=== PATIENT | male | born 1955 | race Caucasian/White ===

== ENCOUNTER 2018-09-11 15:53 | Emergency (ER) | payer MEDICAID ==
[~2018-09-11] VITALS: Ht 175.3 cm; Wt 93.0 kg
[2018-09-11 18:14] VITALS: BP 138/71
--- NOTE | 2018-09-11 18:32 | NUR ---
YAZ GONZALEZ DISCUSSED PLAN OF CARE, PATIENT ON OXYCODONE
--- NOTE | 2018-09-11 18:33 | NUR ---
ALIREZA CYRRENTLY TAKING 10 MG OXYCODONE Q 4-6 HOURS
--- NOTE | 2018-09-11 18:34 | NUR ---
PRIMARY ASSESSMENT COMPLETED WITH MARLENA CHAND - CHARTED UNDER HER NAME, BUT REVIEWED BY MYSELF AND I AGREE WITH CHARTING.
[2018-09-11] MEDS ORDERED: oxyCODONE/APAP 10/325mg tablet PO ONE (18:35)
[2018-09-11 18:56] LABS: BASOPHILS # (AUTO) 0.1 X10'3 (0-0.2); EOSINOPHILS # (AUTO) 0.1 X10'3 (0-0.9); EOSINOPHILS % (AUTO) 1.4 % (0-6); HEMATOCRIT 38.8 % (42.0-52.0); HEMOGLOBIN 13.1 g/dl (14.0-17.9); LYMPHOCYTES % (AUTO) 25.5 % (21-51); MEAN CORPUSCULAR HEMOGLOBIN 28.6 PG (27.0-31.0); MEAN CORPUSCULAR HGB CONC 33.8 g/dL (33.0-36.5); MEAN CORPUSCULAR VOLUME 84.5 FL (78-98); MEAN PLATELET VOLUME 8.3 FL (7.4-10.4); MONOCYTES # (AUTO) 0.9 X10'3 (0-0.9); MONOCYTES % (AUTO) 11.8 % (2-12); NEUTROPHILS # (AUTO) 4.7 X10'3 (1.8-7.7); NEUTROPHILS % (AUTO) 60.3 % (42-75); PLATELET COUNT 335 X10'3 (140-440); RED BLOOD COUNT 4.59 X10'6 (4.70-6.10); RED CELL DISTRIBUTION WIDTH 13.3 % (11.5-14.5); WHITE BLOOD COUNT 7.9 X10'3 (4.5-11.0)
[2018-09-11 19:06] LABS: ALANINE AMINOTRANSFERASE 20 U/L (12-78); ALBUMIN 2.6 G/DL (3.4-5.0); ALBUMIN/GLOBULIN RATIO 0.6 (1.1-1.5); ALKALINE PHOSPHATASE 134 IU/L (46-116); ANION GAP 5 (8-16); ASPARTATE AMINO TRANSFERASE 16 U/L (10-37); BILIRUBIN,TOTAL 0.2 MG/DL (0.1-1.0); BLOOD UREA NITROGEN 16 MG/DL (7-18); BUN/CREATININE RATIO 13.7 (5.4-32.0); CALCIUM 8.7 MG/DL (8.5-10.1); CHLORIDE 103 MMOL/L (99-107); CREATININE 1.17 MG/DL (0.60-1.10); GLUCOSE 346 MG/DL (70-104); POTASSIUM 4.3 MMOL/L (3.5-5.1); SODIUM 138 MMOL/L (135-145); TOTAL CARBON DIOXIDE 29.6 MMOL/L (24-32); eGFR 63 ML/MIN
--- NOTE | 2018-09-11 19:56 | NUR ---
PT IS POOR HISORIAN AND DOESN'T KNOW WHICH MEDICATIONS HE TAKES. MULTIPLE CALLS HAVE BEEN MADE TO HIS PROVIDERS AND PHARMACY WITHOUT SUCCESS.
== END 2018-09-11 20:36 | disposition left against medical advice (07) ==
LOC: ER 15:54
DX: E11.52 Type 2 diabetes mellitus with diabetic peripheral angiopathy with gangrene (principal); I96 Gangrene, not elsewhere classified; M79.671 Pain in right foot; I25.10 Atherosclerotic heart disease of native coronary artery without angina pectoris; I25.2 Old myocardial infarction; Z95.1 Presence of aortocoronary bypass graft; Z88.5 Allergy status to narcotic agent
CPT/HCPCS: 36415; 71045; 80053; 83605; 85025; 99284